=== PATIENT | female | born 1975 | race Caucasian/White ===

== ENCOUNTER 2016-12-25 19:12 | Emergency (ER) | payer BC ==
[2016-12-25 19:23] VITALS: TEMP 98.2; O2SAT 97
--- NOTE | 2016-12-25 19:43 | EDPHY ---
H & P Smoking Status: Never smoked Time Seen by Provider: 12/25/16 19:32 HPI/ROS: CHIEF COMPLAINT: Left index finger l skin avulsion HISTORY OF PRESENT ILLNESS: 41-year-old female right-hand dominant with up-to- date tetanus was cutting vegetables and sustained accidental skin avulsion to her left index finger distal phalanx. Area continues to bleed. No flexor extensor deficits. No paresthesia. PHYSICAL EXAM (Prior to examination, patient consented to physical exam, hands were washed and my usual and customary physical exam procedures followed) 1) GENERAL: Well-developed, well-nourished, alert and oriented. Appears to be in no acute distress. 2) HEAD: Normocephalic 3) HEENT: sclera anicteric 4) LUNGS: Breathing comfortably. 5) SKIN: [on the left index finger distal phalanx radial aspect superficial skin avulsion with slow continued capillary bleed. (Fei Day) Constitutional: Initial Vital Signs Temperature (C) 36.8 C 12/25/16 19:20 Heart Rate 57 L 12/25/16 19:20 Respiratory Rate 18 12/25/16 19:20 Blood Pressure 100/60 12/25/16 19:20 O2 Sat (%) 97 12/25/16 19:20 O2 Delivery Mode Room Air Allergies/Adverse Reactions: ciprofloxacin [From Cipro] Allergy (Verified 03/27/14 10:36) ciprofloxacin HCl [From Cipro] Allergy (Verified 03/27/14 10:36) Home Medications: Medication Instructions Recorded Embrel 03/27/14 MDM/Departure - MDM Procedures: Procedure: Digital nerve block Indications risks benefits discussed with patient she consents. 1% plain lidocaine infiltrated in my usual and customary fashion achieving anesthesia distally. The area is then cleansed by ER staff and Surgicel dressing placed by ER staff resulting in hemostasis. Patient tolerated procedure well. (Fei Day) Medications Given: Discontinued Medications Tranexamic Acid (Cyklokapron) 500 mg TP EDNOW ONE Stop: 12/25/16 20:28 Last Admin: 12/25/16 20:45 Dose: Not Given ED Course/Re-evaluation: The patient was evaluated and managed by the physician floral assistant. I have reviewed this chart and I agree with the findings and plan of care as documented , as indicated by my signature. I am the secondary supervising physician. ( Kellie Regan) - Depart Disposition: Home, Routine, Self-Care Clinical Impression: Skin avulsion left index finger Condition: Good Instructions: Skin Avulsion (ED) Additional Instructions: Return to the ER if you develop redness, swelling, discharge, warmth to the wound, red streaks going up your arm , or any other symptoms that concern you. Referrals: Steven Lemus MD [Primary Care Provider] - 2-3 days, call for appt.
[2016-12-25] MEDS ORDERED: TRANEXAMIC ACID 1,000 MG/10 ML VIAL TP ONE (20:27)
[2016-12-25 21:03] VITALS: BP 102/73; PULSE 58; RESP 16
== END 2016-12-25 21:02 | disposition home or self-care (01) ==
PROC: 3E0T3CZ (ICD-10-PCS; principal; 2016-12-25)
DX: S61.201A Unspecified open wound of left index finger without damage to nail, initial encounter (principal); W26.9XXA Contact with unspecified sharp object(s), initial encounter